=== PATIENT | female | born 1965 | race Caucasian/White ===

== ENCOUNTER 2022-03-12 15:08 | Emergency (ER) | payer OTHER, SELFPAY ==
[2022-03-12 15:15] VITALS: BP 129/86; PULSE 85; RESP 14; TEMP 37.2; O2SAT 100
--- NOTE | 2022-03-12 15:34 | ED.SKABFB ---
HPI - Skin/Abscess/Foreign Bdy General Chief complaint: Skin/Abscess/Foreign Body Stated complaint: Right leg tick bite Time Seen by Provider: 03/12/22 15:20 Source: patient Mode of arrival: ambulatory Limitations: no limitations History of Present Illness HPI narrative: Ms. Walker is a 56-year-old female patient presenting to the clinic today with complaints of a tick bite to the right lower leg. She reports that she got this tick bite approximately 3 days ago. It has become red and pustular. She denies any pain or itching. She is concerned about infection. Related Data Home Medications Medication Instructions Recorded Confirmed amitriptyline 50 mg tablet 50 mg PO DAILY 03/12/22 03/12/22 estradiol 1 mg tablet 1 mg PO DAILY 03/12/22 03/12/22 progesterone micronized 100 mg 100 mg PO QAM 03/12/22 03/12/22 capsule Allergies Allergy/AdvReac Type Severity Reaction Status Date / Time No Known Allergies Allergy Verified 03/12/22 15:24 Review of Systems Review of Systems: Pertinent positives per HPI. Patient denies any fever, chills, rash, headache, visual changes, dizziness, cough, runny nose, sore throat, shortness of breath, chest pain, palpitations, nausea, vomiting, diarrhea, constipation, abdominal pain, or any urinary issues. PMFSH Past Medical History Medical History Depression Surgical History Surgical History History of History of surgery on wrist Social History Social History Smoking status: Never smoker Alcohol intake: never Comments At the time of my signature, I reviewed and agree with the nursing past medical, surgical, social, and family history. There is no relevant family history pertinent to the patient complaint. Exam Narrative: General: Well-developed, well nourished, in no apparent distress Head: Normocephalic, atraumatic. Cardio: Regular rate and rhythm, s1 and s2 normal, no murmur appreciated. Resp: Clear to auscultation bilaterally, no rhonchi, rales, wheezing or rubs. Integumentary: [place], warm, and dry, intact without lesion, dime sized pustular red rash with mild induration to the right anterior lower leg. Course Course Emergency Course: Portions of this record may have been created with voice recognition software. Level of Care: Express Care Visit Vital Signs Vital signs: Vital Signs Temperature 37.2 C 03/12/22 15:15 Pulse Rate 85 03/12/22 15:15 Respiratory Rate 14 03/12/22 15:15 Blood Pressure 129/86 03/12/22 15:15 Pulse Oximetry 100 03/12/22 15:15 Oxygen Delivery Room Air 03/12/22 15:15 Temperature 37.2 C 03/12/22 15:15 Pulse Rate 85 03/12/22 15:15 Respiratory Rate 14 03/12/22 15:15 Blood Pressure 129/86 03/12/22 15:15 Pulse Oximetry 100 03/12/22 15:15 Oxygen Delivery Room Air 03/12/22 15:15 Vital signs reviewed MDM - Skin/Abscess/Foreign Bdy MDM Narrative Medical decision making narrative: At the time of visit patient is resting comfortably on the exam table. She has a small indurated pustular rash to the right lower leg. Reports that she removed the tick bite entirely from the spot. I will go ahead and treat her with a one-time dose of doxycycline 200 mg and order some mupirocin cream to put over this area. Supportive measures were discussed with the patient she voiced understanding of discharge instructions and agrees to the treatment plan. Differential Diagnosis Differential diagnosis: Likely abscess of skin or subcutaneous tissue and insect bites Discharge Plan Discharge Clinical Impression: Tick bite, Localized bacterial skin infection Patient Disposition: Home, Self-Care Condition: Stable Instructions: Antibiotic Form, Tick Bite (ED) Additional Instructions: Apply mupirocin cream as directed
== END 2022-03-12 15:44 | disposition home or self-care (01) ==
PROVIDERS: Emergency Provider Nurse Practitioner Family
DX: S80.861A Insect bite (nonvenomous), right lower leg, initial encounter (principal); L08.9 Local infection of the skin and subcutaneous tissue, unspecified; W57.XXXA Bitten or stung by nonvenomous insect and other nonvenomous arthropods, initial encounter; F32.A Depression, unspecified
CPT/HCPCS: 99213; G0463